=== PATIENT | female | born 1965 | race Caucasian/White ===

== ENCOUNTER 2020-09-15 12:50 | Outpatient (CLI) | payer OTHER | END 2020-09-15 16:56 | disposition home or self-care (01) | LOC: OFIC 805 12:50 | PROVIDERS: ATTEND Otolaryngology Otology & Neurotology | DX: H91.13 Presbycusis, bilateral (principal) ==

== ENCOUNTER 2025-03-02 13:34 | Emergency (ER) | payer OTHER ==
[~2025-03-02] VITALS: Ht 162.6 cm; Wt 68.0 kg
[2025-03-02] MEDS ORDERED: ASPIRIN 325 MG TABLET.EC PO STA (13:49)
[2025-03-02] MEDS ORDERED: IRBESARTAN150 MG PO (13:55)
[2025-03-02 14:23] LABS: BASO % 0.5 % (0.1-1.2); EOS # 0.10 (0.04-0.54); EOS % 1.1 % (0.7-7.0); LYMPH # 4.54 (1.18-3.74); LYMPH % 48.2 % (19.3-53.1); MEAN PLATELET VOLUME 9.70 fl (9.4-12.4); MONO # 1.09 (0.24-0.82); MONO % 11.6 % (4.7-12.5); NEUT # 3.59 (1.56-6.13); NEUT % 38.2 % (34.0-71.1); RED CELL DISTRIBUTION WIDTH 14.0 % (11.6-14.4)
[2025-03-02 14:57] LABS: INR 0.96
[2025-03-02 14:58] LABS: ALT/SGPT 24.0 U/L (12-78); AST/SGOT 15.0 U/L (15-37); BILIRUBIN TOTAL 0.46 mg/dL (0.3-1.2); BUN CREA RATIO 21.0 (7.0-25.0); CREATININE SERUM 0.62 mg/dL (0.55-1.02); GFR 98.19; GLOBULINA 3.4 G/DL (2.4-3.5); GLUCOSE FASTING 100.0 mg/dL (65-100); LDH 116.0 U/L (84-246); OSMOLALITY SERUM 283.0 MOSM/KG (275-295); PHOSPHOKINASE CREATININE 44.0 U/L (26-192)
== END 2025-03-02 15:49 | disposition left against medical advice (07) ==
LOC: ER 13:34
PROVIDERS: Emergency Medicine
DX: R07.89 Other chest pain (principal); I10 Essential (primary) hypertension; Z91.013 Allergy to seafood